=== PATIENT | male | born 1980 | race Two or more races ===

== ENCOUNTER 2018-06-28 16:08 | Emergency (ER) | payer SELFPAY ==
[~2018-06-28] VITALS: Ht 175.3 cm; Wt 122.0 kg
[~2018-06-28 16:08] MED LIST: GLUC-202; KETO2CRE4; METF-370; [UNRECOGNIZED DRUG - CODE]; [UNRECOGNIZED DRUG - CODE]; [UNRECOGNIZED DRUG - CODE]
[2018-06-28 16:31] VITALS: BP 160/88
[2018-06-28] MEDS ORDERED: InsuLIN REG 1unit/0.01ml Soln (100units/ml) SC ONE (17:00)
== END 2018-06-28 17:28 | disposition home or self-care (01) ==
LOC: ER 16:16
DX: E11.9 Type 2 diabetes mellitus without complications (principal); Z76.0 Encounter for issue of repeat prescription
CPT/HCPCS: 96372; 99283; J1815

== ENCOUNTER → 2019-12-27 | Emergency (ER) | payer MEDICAID ==
[~2019-12-27] VITALS: Ht 175.3 cm; Wt 113.4 kg
[~2019-12-27] MED LIST changes: +InsuLIN REG 1unit/0.01ml Soln (100units/ml) IV ONE; +KETOROLAC TROMETH 15 mg/ml 1ML VL IV ONE; +MORPHINE SULFATE 4 MG/ML SYR/VIAL IV ONE; +ONDANSETRON HCL 4 MG/2 ML VIAL IV ONE; +PROMETHAZINE HCL 25 MG/ML 1ML IV ONE; +PROMETHAZINE HCL 25 MG/ML 1ML ONE; +SODIUM CHLORIDE 0.9% 1,000 ML IV ONE; +TAMSULOSIN HYDROCHLORIDE 0.4 MG CAP PO ONE
[2019-12-27 09:45] LABS: Basophils # (auto) 0.1 uL; Basophils % (auto) 0.6 % (0.0-2.0); Eosinophils # (auto) 0 uL; Eosinophils % (auto) 0.5 % (0.0-7.0); Hematocrit 46.4 % (41.0-53.0); Hemoglobin 15.4 g/dL (13.5-17.5); Lymphocytes # (auto) 1.4 uL; Lymphocytes % (auto) 13.2 % (10.0-50.0); Mean Corpuscular Hemoglobin 30.4 pg (28.0-32.0); Mean Corpuscular Hgb Conc. 33.3 g/dL (32.0-36.0); Mean Corpuscular Volume 91.4 fL (80.0-100.0); Monocytes # (auto) 0.5 uL; Monocytes % (auto) 4.7 % (0.0-12.0); Neutrophils # (auto) 8.7 uL; Platelet Count (auto) 195 10^3/uL (140-450); Red Blood Cells 5.08 10^6/uL (4.5-5.90); Red Cell Distribution Width 13.6 % (11.8-14.3); White Blood Cell 10.7 10^3/uL (4.4-10.8)
[2019-12-27 09:57] LABS: Urine Bacteria NONE SEEN /hpf (None Seen); Urine Blood 1+ /uL (Negative); Urine Specific Gravity 1.041 (1.001-1.035); Urine WBC 1 /hpf (0 - 3)
[2019-12-27 10:14] LABS: Alcohol, Urine < 3.0 mg/dL (0-5); Amphetamine Screen, Urine NEGATIVE (NEGATIVE); Barbiturate Scree,Urine NEGATIVE (NEGATIVE); Benzodiazephine Screen, Urine NEGATIVE (NEGATIVE); Cannabinoid Screen, Urine NEGATIVE (NEGATIVE); Cocaine Screen, Urine NEGATIVE (NEGATIVE); Opiate Scree,Urine NEGATIVE (NEGATIVE); Phencyclidine Screen, Urine NEGATIVE (NEGATIVE)
[2019-12-27 10:34] LABS: Albumin 3.4 g/dL (3.4-5.0); Anion Gap 9 (5-15); Blood Urea Nitrogen 17 mg/dL (7-18); Calcium 8.5 mg/dL (8.5-10.1); Carbon Dioxide 26 mmol/L (21-32); Chloride 103 mmol/L (98-107); Glucose 357 mg/dL (74-106); Potassium 4.1 mmol/L (3.5-5.1); Sodium 138 mmol/L (136-145)
[2019-12-27 10:40] LABS: Alanine Aminotransferase 38 U/L (16-61); Alkaline Phosphatase 114 U/L (45-117); Aspartate Aminotransferase 17 U/L (15-37); BUN/Creatinine Ratio 18.5; Bilirubin, Total 0.3 mg/dL (0.2-1.0); GFR African American 118 mL/min; GFR Non-African American 98 mL/min; Total Protein 7.8 g/dL (6.4-8.2)
[2019-12-27 11:33] VITALS: BP 160/90
== END | disposition home or self-care (01) ==
LOC: ER 09:03
DX: N20.0 Calculus of kidney (principal); E86.0 Dehydration; E11.65 Type 2 diabetes mellitus with hyperglycemia
CPT/HCPCS: 36415; 74176; 80053; 80307; 81001; 82962; 84484; 85025; 96361; 96374; 96375; 99284; J1815; J1885; J2270; J2405; J2550; J7030

== ENCOUNTER 2025-07-28 06:27 | Emergency (ER) | payer MEDICAID ==
[~2025-07-28] VITALS: Ht 172.7 cm; Wt 103.9 kg
[~2025-07-28 06:27] MED LIST changes: -InsuLIN REG 1unit/0.01ml Soln (100units/ml) IV ONE; -KETOROLAC TROMETH 15 mg/ml 1ML VL IV ONE; -MORPHINE SULFATE 4 MG/ML SYR/VIAL IV ONE; -ONDANSETRON HCL 4 MG/2 ML VIAL IV ONE; -PROMETHAZINE HCL 25 MG/ML 1ML IV ONE; -PROMETHAZINE HCL 25 MG/ML 1ML ONE; -SODIUM CHLORIDE 0.9% 1,000 ML IV ONE; -TAMSULOSIN HYDROCHLORIDE 0.4 MG CAP PO ONE
[2025-07-28 06:30] VITALS: BP 200/106; RESP 20; TEMP 97.9; O2SAT 97
[2025-07-28 06:42] VITALS: PULSE 101
--- NOTE | 2025-07-28 06:59 | ED.PDOC ---
History of Present Illness HPI Comments 44-year-old male presents to the ER with prior medical history of hypertension and the chief complaint of eye blurriness. Patient reports on possibly having a vitreous hemorrhage due from him having blurry vision/dark cloud to the left eye for two days. 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 Denies chills, fever, N/V/D, SOB, CP. No other associated symptoms, modifiers, recent injuries or sick contacts present at this time. Chief Complaint: Eye Problem Time Seen by MD: 07:00 Primary Care Provider: KATHLEEN Garcia Notes: Nurses Notes, Medications, Allergies Allergies: Coded Allergies: NO KNOWN ALLERGIES (Unverified , 12/18/15) Home Meds Reported Medications Ketoconazole (Ketoconazole) 2 % Cre, #60 12/19/15 Metformin Hydrochloride (Metformin Hcl) 500 Mg Tab, #90 12/19/15 Lancet Devices (Fora Lancing Device) Lancing Mis, #1 12/19/15 Lancets (Fora Lancets) Lancets Mis, #200 12/19/15 Blood Glucose Calibration (Fora Control Solution Nor) Normal Kristen, #1 12/19/15 Glucose Blood (Fora V30a Blood Glucose T) Bld Gluc [place], #200 12/19/15 Information Source: Patient Mode of Arrival: Ambulatory Severity: Moderate Timing: Hours Duration: Since onset, Hours Prehospital treatment: None Past Medical History PAST MEDICAL HISTORY: DM, HTN Surgical History: Denies all surgeries Family History Family History: Reviewed,noncontributory to illness, Unknown Social History Smoker: Non-Smoker Alcohol: Denies ETOH Use Drugs: Denies Drug Use Lives In: Home Constitutional: denies: chills, diaphoresis, fatigue, fever, malaise, sweats, weakness, others EENTM: reports: others (Blurriness, dark cloud); denies: blurred vision, double vision, ear bleeding, ear discharge, ear drainage, ear pain, ear ringing, eye pain, eye redness, hearing loss, mouth pain, mouth swelling, nasal discharge, nose bleeding, nose congestion, nose pain, photophobia, tearing, throat pain, throat swelling, voice changes Respiratory: denies: cough, hemoptysis, orthopnea, SOB at rest, shortness of breath, SOB with excertion, stridor, wheezing, others Cardiovascular: denies: chest pain, dizzy spells, diaphoresis, Dyspnea on exertion, edema, irregular heart beat, left arm pain, lightheadedness, palpitations, PND, syncope, others Gastrointestinal: denies: abdomen distended, abdominal pain, blood streaked bowels, constipated, diarrhea, dysphagia, difficulty swallowing, hematemesis, melena, nausea, poor appetite, poor fluid intake, rectal bleeding, rectal pain, vomiting, others Genitourinary: denies: burning, dysuria, flank pain, frequency, hematuria, incontinence, penile discharge, penile sore, pain, testicle pain, testicle swelling, urgency, others Neurological: denies: dizziness, fainting, headache, left sided numbness, left sided weakness, numbness, paresthesia, pre-existing deficit, right sided numbness, right sided weakness, seizure, speech problems, tingling, tremors, weakness, others Musculoskeletal: denies: back pain, gout, joint pain, joint swelling, muscle pain, muscle stiffness, neck pain, others Integumetry: denies: bruises, change in color, change in hair/nails, dryness, laceration, lesions, lumps, rash, wounds, others Allergic/Immunocompromised: denies: Difficulty Healing, Frequent Infections, Hives, Itching, others Hematologic/Lymphatic: denies: anemia, blood clots, easy bleeding, easy bruising, swollen glands, others Endocrine: denies: excessive hunger, excessive sweating, excessive thirst, excessive urination, flushing, intolerance to cold, intolerance to heat, unexplained weight gain, unexplained weight loss, others Psychiatric: denies: anxiety, bipolar disorder, depression, hopeless, panic disorder, schizophrenia, sleepless, suicidal, others All Other Systems: Reviewed and Negative Physical Exam General Appearance: No Apparent Distress, Normal HEENT: Normal ENT Inspection, Pharynx Normal, TMs Normal Neck: Full Range of Motion, Non-Tender, Normal, Normal Inspection Respiratory: Chest Non-Tender, Lungs Clear, No Accessory Muscle Use, No Respiratory Distress, Normal Breath Sounds Cardiovascular: No Edema, No JVD, No Murmur, No Gallop, Normal Peripheral Pulses, Regular Rate/Rhythm Breast Exam: Deferred Gastrointestinal: No Organomegaly, Non Tender, No Pulsatile Mass, Normal Bowel Sounds, Soft Genitalia: Deferred Pelvic: Deferred Rectal: Deferred Extremities: No calf tenderness, Normal capillary refill, Normal inspection, Normal range of motion, Non-tender, No pedal edema Musculoskeletal : Apperance: Normal Neurologic: Alert, director television II-XII nml as Tested, No Motor Deficits, Normal Affect, Normal Mood, No Sensory Deficits Cerebellar Function: Normal Reflexes: Normal Skin: Dry, Normal Color, Warm Lymphatic: No Adenopathy Was a procedure done? Was a procedure done?: No X-Ray, Labs, Meds, VS Vital Signs Date Time Temp Pulse Resp B/P (MAP) Pulse Ox O2 Delivery O2 Flow Rate FiO2 07/28/25 06:42 101 07/28/25 06:30 97.9 106 20 200/106 97 97.9 Time of 1ST Reevaluation: 07:30 Reevaluation 1ST: Unchanged Patient Education/Counseling: Diagnosis, Treatment, Prognosis Family Education/Counseling: No Family Present SEPSIS Sepsis Screen Date sepsis recognized/suspect: Jul 28, 2025 Time Sepsis recognized/suspect: 636 Recent Procedure: No On Antibiotic Therapy: No Respiratory Rate >20: No Heart Rate >90: Yes Temp<36 C (96.8 F) or >38.3 C: No SBP <90 or MAP <65 mmHG: No New Acute Mental Status Change: No Is the patient on CPAP, BIPAP,: No Physician Orders Electrocardigram (07/28/25 06:40) Basic Metabolic Panel (07/28/25 06:48) Complete Blood Count (07/28/25 06:48) Troponin-I Hs (07/28/25 06:48) Troponin-I Hs (07/28/25 07:48) Troponin-I Hs (07/28/25 09:48) Vital Signs Date Time Temp Pulse Resp B/P (MAP) Pulse Ox O2 Delivery O2 Flow Rate FiO2 07/28/25 06:42 101 07/28/25 06:30 97.9 106 20 200/106 97 97.9 Critical Care Note Critical Care Time?: No Stability Stability form required: No I personally scribed for JUAN J SOTO MD ([email or web address]) on 07/28/25 at 06:59. Electronically submitted by Ranjan Mccann ([email or web address]). JUAN J SOTO MD Jul 28, 2025 06:59
--- NOTE | 2025-07-28 16:10 | ECG ---
[facility] Test Date: 2025-07-28 Test Time: 06:42:45 Pat Name: YONY LAZO Department: ED Room: Gender: Banana Expert: rubi : 1980 Requested By: JUAN J SOTO Order Number: [id number] Reading MD: Miky Nolan Measurements Intervals [place] Rate: 101 P: 43 CA: 152 QRS: -105 QRSD: 140 T: 20 QT: 390 QTc: 506 Interpretive Statements Sinus tachycardia RBBB and LAFB Electronically Signed On 07-28-2025 16:39:35 PDT by Miky Nolan Please click the below link to view image of tracing.
== END 2025-07-28 08:49 | disposition left against medical advice (07) ==
LOC: ER 06:27
DX: H53.8 Other visual disturbances (principal); E11.9 Type 2 diabetes mellitus without complications; I10 Essential (primary) hypertension
CPT/HCPCS: 93005